=== PATIENT | female | born 1990 | race Caucasian/White ===

== ENCOUNTER → 2021-04-25 11:33 | Outpatient (BNVA) | payer BC, SELFPAY | PROVIDERS: Family Provider Family Medicine; PCP Family Medicine; Visit Provider Family Medicine | DX: L27.2 Dermatitis due to ingested food (principal); Z13.6 Encounter for screening for cardiovascular disorders; F41.0 Panic disorder [episodic paroxysmal anxiety]; R06.02 Shortness of breath; Z68.22 Body mass index [BMI] 22.0-22.9, adult | CPT/HCPCS: 80053; 85025; 86003 ==